=== PATIENT | male | born 1945 | race Caucasian/White ===

== ENCOUNTER 2017-03-04 08:14 | Day surgery (SDC) | payer MEDICARE ==
[~2017-03-04] VITALS: Ht 165.1 cm; Wt 79.2 kg
[2017-03-04] MEDS ORDERED: ATOR10 (08:58)
[2017-03-04] MEDS ORDERED: ASPI81CH (08:58)
== END 2017-03-04 11:03 | disposition home or self-care (01) ==
LOC: ORSCSDS 08:14
DX: Z12.11 Encounter for screening for malignant neoplasm of colon (principal); D12.0 Benign neoplasm of cecum; D12.2 Benign neoplasm of ascending colon; K63.5 Polyp of colon; Z80.0 Family history of malignant neoplasm of digestive organs; Z86.010 Personal history of colon polyps; K57.30 Diverticulosis of large intestine without perforation or abscess without bleeding; Z79.82 Long term (current) use of aspirin; Z79.899 Other long term (current) drug therapy
CPT/HCPCS: 88305; J7120

== ENCOUNTER 2022-01-30 06:07 | Day surgery (SDC) | payer MEDICARE ==
[~2022-01-30] VITALS: Ht 165.1 cm; Wt 79.8 kg
[~2022-01-30 06:07] MED LIST: ASPI81CH; ATOR10; MOTION RELIEF25 MG PO; Pyridium100 MG PO; TAMS.4ER PO
[2022-01-30] MEDS ORDERED: ATOR10 PO (06:26)
[2022-01-30] MEDS ORDERED: MECL25 (06:27)
--- NOTE | 2022-01-30 06:34 | NUR ---
01/30/22 0634 Shania Mccabe CALL LIGHT WITHIN REACH. TETRACAINE IN AT 0628 IN THE LEFT EYE AND PLEDGETT IN AT 0630 IN LEFT EYE
== END 2022-01-30 08:23 | disposition home or self-care (01) ==
LOC: ORSCSDS 06:07
PROVIDERS: Student in an Organized Health Care Education/Training Program
PROC: 08RK3JZ Replacement of Left Lens with Synthetic Substitute, Percutaneous Approach (ICD-10-PCS; principal; 2022-01-30 07:30)
DX: H25.12 Age-related nuclear cataract, left eye (principal); E78.5 Hyperlipidemia, unspecified; Z85.46 Personal history of malignant neoplasm of prostate; N40.0 Benign prostatic hyperplasia without lower urinary tract symptoms; Z79.899 Other long term (current) drug therapy
CPT/HCPCS: J2001; J2250; J3010; J7040; V2632